=== PATIENT | female | born 1950 | race Caucasian/White ===

== ENCOUNTER 2017-07-22 02:36 | Inpatient (IN) | payer MEDICARE, MEDICAID ==
[2017-07-22] MEDS ORDERED: ONDANSETRON HCL INJ/PF 4 MG/2 ML SDV IV ONE (02:46)
[2017-07-22] MEDS ORDERED: HYDROMORPHONE HCL INJ/PF 2 MG/ML AMPULE IV ONE (02:47)
--- NOTE | 2017-07-22 02:51 | ER Document Report ---
ED General <ANJU BEAUCHAMP - Last Filed: 07/22/17 06:42> <THUY AMANDA - Last Filed: 07/22/17 11:36> - General Stated Complaint: ABDOMINAL PAIN Time Seen by Provider: 07/22/17 02:46 - HPI Notes: Patient is a 67-year-old female no significant past medical history aside from a hysterectomy who presents to the ED complaining of generalized abdominal pain , but worse in the epigastrium. Patient states that her symptoms began at 1800 yesterday evening after she ate dinner. Patient states that she was feeling nauseated and forced herself to throw up 3 times without any coffee-ground emesis or hematemesis. Patient states that she continues to have abdominal pain as well as nausea. She states that she is urinating normally and she had a normal bowel movement 2 days ago. Patient states that she usually has a bowel movement every couple days which is normal for her. Patient has not noticed any melena or hematochezia. Patient states that the pain does not radiate. She does not take any medicines daily. Denies any other recent illness. Denies any headache, fever, URI, sore throat, chest pain, palpitations , syncope, cough, shortness of breath, wheeze, dyspnea, diarrhea, urinary retention, dysuria, hematuria, loss of control of bowel or bladder, numbness/ tingling, saddle anesthesia, muscle paralysis/weakness, or rash. (ANJU BEAUCHAMP) - Related Data Allergies/Adverse Reactions: No Known Allergies Allergy (Unverified 07/22/17 02:47) Past Medical History - Social History Smoking Status: Never Smoker Family History: Reviewed & Not Pertinent <ANJU BEAUCHAMP - Last Filed: 07/22/17 06:42> Review of Systems - Review of Systems -: Yes All other systems reviewed and negative <ANJU BEAUCHAMP - Last Filed: 07/22/17 06:42> Physical Exam <ANJU BEAUCHAMP - Last Filed: 07/22/17 06:42> <THUY AMANDA - Last Filed: 07/22/17 11:36> - Vital signs Vitals: Temp Pulse Resp BP Pulse Ox 98.3 F 97 20 122/88 H 95 07/22/17 02:46 07/22/17 02:46 07/22/17 02:46 07/22/17 02:46 07/22/17 02:46 - Notes Notes: PHYSICAL EXAMINATION: GENERAL: Well-appearing, well-nourished and appears uncomfortable. A&Ox4. HEAD: Atraumatic, normocephalic. EYES: Pupils equal round and reactive to light, extraocular movements intact, sclera anicteric, conjunctiva are normal. ENT: Nares patent and without discharge. oropharynx clear without exudates. No tonsilar hypertrophy or erythema. Moist mucous membranes. NECK: Normal range of motion, supple without lymphadenopathy LUNGS: Breath sounds clear to auscultation bilaterally and equal. No wheezes rales or rhonchi. HEART: Regular rate and rhythm without murmurs, rubs, gallops. ABDOMEN: Soft, nondistended abdomen. No guarding, no rebound. No masses appreciated. Normal bowel sounds present. No CVA tenderness bilaterally. + generalized tenderness, but increased tenderness to the epigastrum. ?[place]. Musculoskeletal: FROM to passive/active. Strength 5+/5. Extremities: No cyanosis, clubbing, or edema b/l. Peripheral pulses 2+. Capillary refill less than 3 seconds. NEUROLOGICAL: Normal speech, normal gait. Normal sensory, motor exams PSYCH: Normal mood, normal affect. SKIN: Warm, Dry, normal turgor, no rashes or lesions noted. (ANJU BEAUCHAMP) Course - Laboratory Result Diagrams: 07/22/17 04:05 07/22/17 04:05 <ANJU BEAUCHAMP - Last Filed: 07/22/17 06:42> - Laboratory Result Diagrams: 07/22/17 04:05 07/22/17 04:05 <THUY AMANDA - Last Filed: 07/22/17 11:36> - Re-evaluation Re-evalutation: 07/22/17 05:38 Patient CMP shows elevated bili and LFTs with a normal lipase. Urinalysis shows bilirubin as well. Patient does not have an elevated white blood cell count and is currently afebrile. Right upper quadrant ultrasound was unremarkable for any acute pathology. I did consult with Dr. Adan who will come evaluate the patient, possible choledocolithiasis. Pt states that she is feeling much better than when she arrived. No new concerns or complaints. Last PO intake was 1800 yesterday. 07/22/17 06:34 Dr. Adan evaluated the patient. He would like a CT abd/pelv with IV and Oral with a MRCP thereafter for further evaluation. Consult will be with Dr. Da Silva thereafter since Dr. Adan will be off duty starting at 0700 07/22/17 07:00 Care transferred to [facility] SARABIA (ANJU BEAUCHAMP) 07/22/17 11:35 CT reveals pericholecystic fluid, correlation with elevated liver enzymes and elevated bilirubin suggests cholecystitis even though ultrasound negative for acute gallbladder issue. Surgeon wants to take patient to the OR to remove her gallbladder immediately. MRCP canceled at this time. Admitted to Dr. Da Silva. (THUY AMANDA) - Vital Signs Vital signs: Temp Pulse Resp BP Pulse Ox 98.8 F 110 H 16 105/65 94 07/22/17 09:49 07/22/17 06:46 07/22/17 10:01 07/22/17 10:00 07/22/17 10:01 - Laboratory Laboratory results interpreted by me: 07/22/17 07/22/17 07/22/17 03:43 04:05 04:05 Seg Neutrophils % 91.3 H Lymphocytes % 6.2 L Monocytes % 1.5 L Absolute Lymphocytes 0.3 L Total Bilirubin 2.3 H Direct Bilirubin 1.8 H AST 287 H ALT 193 H Alkaline Phosphatase 167 H Urine Protein 30 H Urine Blood SMALL H Urine Bilirubin MODERATE H Urine Urobilinogen 4.0 H Ur Leukocyte Esterase TRACE H Discharge <ANJU BEAUCHAMP - Last Filed: 07/22/17 06:42> - Discharge Admitting Provider: Surgicalist - [facility] Unit Admitted: OR <THUY AMANDA - Last Filed: 07/22/17 11:36> - Discharge Clinical Impression: RUQ pain, Elevated liver enzymes, Elevated bilirubin Condition: Stable Disposition: ADMITTED INPATIENT
[2017-07-22] MEDS: NORMAL SALINE 1000 ML 1,000 ML IV PRN ×2 (03:03→05:44)
--- NOTE | 2017-07-22 03:50 | RADIOLOGY REPORT (SQ) ---
EXAM DESCRIPTION: CHEST 2 VIEWS CLINICAL HISTORY: epigastric pain COMPARISON: None. FINDINGS: 2 views of the chest. Tortuosity of thoracic aorta. Heart is not enlarged. Elevation the right hemidiaphragm. No consolidation, pneumothorax, or pleural effusion. Degenerative change of the spine. Upper abdominal soft tissues are unremarkable. IMPRESSION: 1. No acute pulmonary process identified.
[2017-07-22 04:00] LABS: APPEARANCE,URINE CLOUDY; BILIRUBIN,URINE MODERATE (NEGATIVE); COLOR,URINE YELLOW; GLUCOSE, URINE NEGATIVE (NEGATIVE); KETONES,URINE NEGATIVE (NEGATIVE); LEUKOCYTE ESTERASE,URINE TRACE (NEGATIVE); NITRITE,URINE NEGATIVE (NEGATIVE); PROTEIN,URINE 30 mg/dL (NEGATIVE); URINE SPECIFIC GRAVITY 1.027
[2017-07-22 04:22] LABS: ABSOLUTE LYMPHOCYTES (AUTO) 0.3 10^3/uL (0.5-4.7); ABSOLUTE MONOCYTES (AUTO) 0.1 10^3/uL (0.1-1.4); ABSOLUTE NEUT (AUTO) 4.2 10^3/uL (1.7-8.2); BASOPHILS % (AUTO) 0.4 % (0-2); EOSINOPHILS % (AUTO) 0.6 % (0-6); HEMATOCRIT 36.9 % (36.0-47.0); HEMOGLOBIN 12.6 g/dL (12.0-15.5); LYMPHOCYTES % (AUTO) 6.2 % (13-45); MEAN CORPUSCULAR HEMOGLOBIN 31.1 pg (27.0-33.4); MEAN CORPUSCULAR HGB CONC 34.3 g/dL (32.0-36.0); MEAN CORPUSCULAR VOLUME 91 fl (80-97); MONOCYTES % (AUTO) 1.5 % (3-13); PLATELET COUNT 189 10^3/uL (150-450); RED BLOOD COUNT 4.06 10^6/uL (3.72-5.28); RED CELL DISTRIBUTION WIDTH 12.3 % (11.5-14.0); SEGMENTED NEUTROPHILS % (AUTO) 91.3 % (42-78); TOTAL CELLS COUNTED % (AUTO) 100 %; WHITE BLOOD COUNT 4.6 10^3/uL (4.0-10.5)
[2017-07-22 04:41] LABS: ALANINE AMINOTRANSFERASE 193 U/L (9-52); ALBUMIN 3.7 g/dL (3.5-5.0); ALKALINE PHOSPHATASE 167 U/L (38-126); ANION GAP 10 (5-19); ASPARTATE AMINO TRANSFERASE 287 U/L (14-36); BILIRUBIN,DIRECT 1.8 mg/dL (0.0-0.4); BILIRUBIN,TOTAL 2.3 mg/dL (0.2-1.3); BLOOD UREA NITROGEN 15 mg/dL (7-20); CALCIUM 8.9 mg/dL (8.4-10.2); CARBON DIOXIDE 27 mmol/L (22-30); CHLORIDE 105 mmol/L (98-107); GLUCOSE 108 mg/dL (75-110); POTASSIUM 3.6 mmol/L (3.6-5.0); SODIUM 142.1 mmol/L (137-145); TOTAL PROTEIN 6.7 g/dL (6.3-8.2)
--- NOTE | 2017-07-22 05:04 | RADIOLOGY REPORT (SQ) ---
EXAM DESCRIPTION: U/S ABDOMEN LIMITED W/O DOP CLINICAL HISTORY: ruq/epigastric pain COMPARISON: None. TECHNIQUE: Real-time sonographic images of the right upper abdomen were obtained using a curved multihertz transducer. FINDINGS: Pancreas: The visualized portions of the pancreas are unremarkable. Vascular: The visualized portions of the aorta and IVC are unremarkable. Liver: The liver has normal contour and increased echogenicity. Hepatopedal flow in the portal vein. The common bile duct measures 0.6 cm. Gallbladder: The gallbladder has a normal appearance. No gallstones identified. No wall thickening or pericholecystic fluid. Right Kidney: The right kidney measures 10.7 cm in length. No hydronephrosis, solid renal mass, or shadowing calculi. IMPRESSION: 1. No gallstones. 2. Hepatic steatosis.
--- NOTE | 2017-07-22 06:54 | PDOC H&P ---
History of Present Illness Admission Date/PCP: 07/22/17 Patient complains of: epigastric pains with nausea History of Present Illness: LESLIE ALFARO is a 67 year old female who c/o epigastric pains at 6 pm yesterday. Denies any fatty food intolerance. Past Medical History Pulmonary Medical History: Reports: Asthma Social History Smoking Status: Former Smoker - Stopped 6 yrs ago but past 2 weeks has been smoking less than half a pack a day Frequency of Alcohol Use: Social - About a glass of wine a day Hx Recreational Drug Use: No Family History Family History: Reviewed & Not Pertinent Parental Family History Reviewed: Yes - father of Pancreatic CA in his 40s Children Family History Reviewed: No Sibling(s) Family History Reviewed.: No Medication/Allergy Allergies/Adverse Reactions: No Known Allergies Allergy (Unverified 07/22/17 02:47) Review of Systems Constitutional: PRESENT: other - no fever/chills Ears: PRESENT: other - no visual/hearing changes Respiratory: PRESENT: other - no chest pains/cough Gastrointestinal: PRESENT: abdominal pain, nausea Genitourinary: PRESENT: other - no dysuria Neurological: PRESENT: other - no tremors Endocrine: PRESENT: other - no polyuria Hematologic/Lymphatic: PRESENT: other - no easy bruising Physical Exam Vital Signs: Temp Pulse Resp BP Pulse Ox 98.3 F 97 20 122/88 H 95 07/22/17 02:46 07/22/17 02:46 07/22/17 02:46 07/22/17 02:46 07/22/17 02:46 General appearance: PRESENT: mild distress Head exam: PRESENT: atraumatic Eye exam: PRESENT: scleral icterus - slight Mouth exam: PRESENT: moist Neck exam: PRESENT: full ROM Respiratory exam: PRESENT: clear to auscultation emiliana Cardiovascular exam: PRESENT: RRR Pulses: PRESENT: normal radial pulses Vascular exam: PRESENT: normal capillary refill GI/Abdominal exam: PRESENT: soft, tenderness - epigastric/RUQ RLQ Rectal exam: PRESENT: deferred Extremities exam: PRESENT: full ROM Musculoskeletal exam: PRESENT: ambulatory Neurological exam: PRESENT: alert, oriented to person, oriented to place, oriented to time, oriented to situation Psychiatric exam: PRESENT: appropriate affect Skin exam: PRESENT: normal color, warm Results Laboratory Results: 07/22/17 04:05 07/22/17 04:05 07/22/17 07/22/17 07/22/17 03:43 04:05 04:05 WBC 4.6 RBC 4.06 Hgb 12.6 Hct 36.9 MCV 91 MCH 31.1 MCHC 34.3 RDW 12.3 Plt Count 189 Seg Neutrophils % 91.3 H Lymphocytes % 6.2 L Monocytes % 1.5 L Eosinophils % 0.6 Basophils % 0.4 Absolute Neutrophils 4.2 Absolute Lymphocytes 0.3 L Absolute Monocytes 0.1 Absolute Eosinophils 0.0 Absolute Basophils 0.0 Sodium 142.1 Potassium 3.6 Chloride 105 Carbon Dioxide 27 Anion Gap 10 BUN 15 Creatinine 0.70 Est GFR ( Amer) > 60 Est GFR (Non-Af Amer) > 60 Glucose 108 Calcium 8.9 Total Bilirubin 2.3 H AST 287 H ALT 193 H Alkaline Phosphatase 167 H Total Protein 6.7 Albumin 3.7 Lipase 62.0 Urine Color YELLOW Urine Appearance CLOUDY Urine pH 5.0 Ur Specific [place] 1.027 Urine Protein 30 H Urine Glucose (UA) NEGATIVE Urine Ketones NEGATIVE Urine Blood SMALL H Urine Nitrite NEGATIVE Ur Leukocyte Esterase TRACE H Urine WBC (Auto) 10 Urine RBC (Auto) 26 Impressions: Chest X-Ray 07/22/17 02:46 IMPRESSION: 1. No acute pulmonary process identified. Abdomen Ultrasound 07/22/17 04:25 IMPRESSION: 1. No gallstones. 2. Hepatic steatosis. Assessment & Plan - Diagnosis (1) Elevated LFTs Is this a current diagnosis for this admission?: Yes - Time Time Spent: 30 to 50 Minutes - Inpatient Certification Based on my medical assessment, after consideration of the patient's comorbidities, presenting symptoms, or acuity I expect that the services needed warrant INPATIENT care.: Yes I certify that my determination is in accordance with my understanding of Medicare's requirements for reasonable and necessary INPATIENT services [42 CFR 412.3e].: Yes Medical Necessity: Need For IV Fluids, Need for Pain Control, Need for IV Antibiotics, Need for Surgery, Risk of Complication if Not Cared For in Hospital , Risk of Diagnosis Which Will Require Inpatient Eval/Care/Monitoring - Plan Summary Plan Summary: Patient had morphine IV about 4 hrs ago. Need to be re-evaluated when pain med wears out. Meantime CT scan abd/pelvis ordered for abdominal pains R/O Acute appendicitis. May need MRCP to R/O CBD stone Keep NPO and hydrate.
[2017-07-22] MEDS ORDERED: SUCCINYLCHOLINE CHLORIDE INJ 200 MG/10 ML VIAL ONE (07:51)
[2017-07-22] MEDS ORDERED: METOCLOPRAMIDE HCL INJ/PF 10 MG/2 ML SDV ONE (07:51)
[2017-07-22] MEDS ORDERED: NEOSTIGMINE METHYLSULFATE 10 MG/10 ML VIAL ONE (07:51)
[2017-07-22] MEDS ORDERED: LIDOCAINE 2% INJ-PF (20 MG/ML) 2 ML AMPUL ONE (07:51)
[2017-07-22] MEDS ORDERED: GLYCOPYRROLATE INJ 0.4 MG/2 ML VIAL ONE (07:51)
[2017-07-22] MEDS ORDERED: DEXAMETHASONE SOD PHOSPHATE INJ 4 MG/1 ML VIAL ONE (07:51)
[2017-07-22] MEDS ORDERED: KETOROLAC TROMETHAMINE 60 MG/2 ML SDV ONE (07:51)
[2017-07-22] MEDS ORDERED: ROCURONIUM BROMIDE INJ 50 MG/5 ML VIAL IV ONE (07:51)
[2017-07-22] MEDS ORDERED: ONDANSETRON HCL INJ/PF 4 MG/2 ML SDV ONE (07:51)
--- NOTE | 2017-07-22 09:51 | RADIOLOGY REPORT (SQ) ---
EXAM DESCRIPTION: CT ABD/PELVIS WITH IV ORAL COMPLETED DATE/TIME: 07/22/2017 9:26 am REASON FOR STUDY: RLQ, Epigastric pain COMPARISON: None. TECHNIQUE: CT scan of the abdomen and pelvis performed with intravenous and oral contrast using avis [place] scanning technique with dynamic intravenous contrast injection. Images reviewed with lung, soft t issue, and bone windows. Reconstructed coronal and sagittal MPR images reviewed. Delayed images for e valuation of the urinary system also acquired. All images stored on PACS. All CT scanners at this facility use dose modulation, iterative reconstruction, and/or weight based d osing when appropriate to reduce radiation dose to as low as reasonably achievable (ALARA). [facility]: Dose Right [facility]: CareDose [facility]: Dose Right [facility]: Teradose 4D [facility]: [employer] CONTRAST TYPE AND DOSE: contrast/concentration: Isovue 370.00 mg/ml; Total Contrast Delivered: 89.0 ml; Total Saline Delivered: 63.0 ml RENAL FUNCTION: GFR > 60. RADIATION DOSE: CT Rad equipment meets quality standard of care and radiation dose reduction techniq ues were employed. CTDIvol: 18.0 - 20.4 mGy. DLP: 2111 mGy-cm. . LIMITATIONS: None. FINDINGS: LOWER CHEST: No significant findings. No nodules or infiltrates. LIVER: Diffuse hepatic steatosis. No masses. No dilated ducts. SPLEEN: Normal size. No focal lesions. PANCREAS: No masses. No significant calcifications. No adjacent inflammation or peripancreatic fluid collections. Pancreatic duct not dilated. GALLBLADDER: No identified stones by CT criteria. Trace pericholecystic fluid. ADRENAL GLANDS: No significant masses or asymmetry. RIGHT KIDNEY AND URETER: No solid masses. No significant calcifications. No hydronephrosis or hyd roureter. LEFT KIDNEY AND URETER: 3.8 cm simple cyst. 7 mm low attenuating lesion too small to adequately anjali acterize anterior upper pole left kidney but statistically represents a benign cyst. No definite shawn id masses. No significant calcifications. No hydronephrosis or hydroureter. AORTA AND VESSELS: Atherosclerotic calcifications. No aneurysm. No dissection. Renal arteries, SMA, celiac without stenosis. RETROPERITONEUM: No retroperitoneal adenopathy, hemorrhage or masses. BOWEL AND PERITONEAL CAVITY: No obstruction. No visualized masses. No free fluid. No inflammatory ch anges or thickening of bowel wall. 2.9 cm duodenal diverticulum series 3, image 34 and series 601, i mage 44 APPENDIX: Normal. PELVIS: No significant masses. Normal bladder. No free fluid. ABDOMINAL WALL: No masses. No hernias. BONES: Degenerative change without fracture or suspicious osseous lesion. OTHER: No other significant finding. IMPRESSION: TRACE PERICHOLECYSTIC FLUID IDENTIFIED. CORRELATE WITH RIGHT UPPER QUADRANT PAIN AND IF THERE IS CLINICAL CONCERN FOR ACUTE CHOLECYSTITIS RECOMMEND ULTRASOUND. NO ADDITIONAL ACUTE INFLAMMATORY CHANGE IDENTIFIED WITHIN THE ABDOMEN OR PELVIS. CHRONIC CHANGES ABOVE. TECHNICAL DOCUMENTATION: JOB ID: [id number] Quality ID # [id number]: Final reports with documentation of one or more dose reduction techniques (e.g., Au tomated exposure control, adjustment of the mA and/or kV according to patient size, use of iterative reconstruction technique) 2010 [employer]- All Rights Reserved Reading location - IP/workstation name: [email or web address]
[2017-07-22] MEDS ORDERED: KETOROLAC TROMETHAMINE INJ/PF 30 MG/1 ML SDV IV PRN (10:06)
[2017-07-22] MEDS ORDERED: CEFAZOLIN 1 GM/D5W RTU 1 GM/50 ML RTUPB IV ONE (11:30)
[2017-07-22] MEDS ORDERED: MIDAZOLAM 2 MG/2 ML INJ ONE (12:00)
[2017-07-22] MEDS ORDERED: FENTANYL CITRATE INJ/PF 250 MCG/5 ML AMPULE ONE (12:00)
[2017-07-22] MEDS ORDERED: DEXMEDETOMIDINE INJ 80 MCG/20 ML VIAL IV ONE (12:01)
[2017-07-22] MEDS ORDERED: EPHEDRINE SULFATE INJ 50 MG/1 ML AMPULE ONE (12:01)
[2017-07-22] MEDS ORDERED: PROPOFOL INJ 200 MG/20 ML VIAL IV ONE (12:01)
[2017-07-22] MEDS ORDERED: ACETAMINOPHEN 100 ML IV ONE (12:01)
[2017-07-22] MEDS: RINGERS SOLUTION,LACTATED 1,000 ML IV PRN ×2 (12:07→22:36)
[2017-07-22] MEDS ORDERED: BUPIVACAINE HCL 0.25 % INJ/PF (2.5 MG/1 ML) 30 ML VIAL ONE (12:29)
[2017-07-22] MEDS ORDERED: ONDANSETRON HCL INJ/PF 4 MG/2 ML SDV IV PRN ×2 (13:08→14:47)
[2017-07-22] MEDS ORDERED: PROMETHAZINE HCL INJ 25 MG/1 ML VIAL IV PRN ×2 (13:08)
[2017-07-22] MEDS ORDERED: MEPERIDINE HCL/PF INJ 25 MG/1 ML DISP.SYRIN IV PRN (13:08)
[2017-07-22] MEDS ORDERED: DIPHENHYDRAMINE HCL 50 MG/ML VIAL IV PRN (13:08)
[2017-07-22] MEDS ORDERED: FENTANYL CITRATE INJ/PF 100 MCG/2 ML AMPUL IV PRN ×3 (13:08)
--- NOTE | 2017-07-22 14:23 | Operative Report ---
Operative Report DATE OF SURGERY: 07/22/17 PREOPERATIVE DIAGNOSIS: Acute cholecystitis POSTOPERATIVE DIAGNOSIS: Same with cholelithiasis. Thickened appendix OPERATION: 1. Laparoscopic cholecystectomy. 2. Laparoscopic appendectomy SURGEON: IRENE BACON ANESTHESIA: GA TISSUE REMOVED OR ALTERED: 1 gallbladder with contents; one appendix COMPLICATIONS: None ESTIMATED BLOOD LOSS: Scant INTRAOPERATIVE FINDINGS: See below PROCEDURE: After obtaining informed consent, the patient was taken to the operating room. General Anesthesia was induced; the arms were extended, and the abdomen was exposed, and prepped and draped in a sterile fashion. Instrumentation was set up for laparoscopic cholecystectomy. Surgical plan and surgical timeout were conducted. A vertical incision was made above the umbilicus, and a verres needle was inserted uneventfully into the peritoneal cavity. Pneumoperitoneum was established. The verres needle was removed and a 5 mm trocar was inserted and a 5 mm flexible laparoscope was inserted. Visualization of the peritoneal cavity confirmed safe uneventful entry. Under direct visualization 3 additional 5 mm ports were established, one in the subxiphoid position and second in the subcostal position. We visualized the peritoneal cavity and the findings are significant for acutely inflamed gallbladder consistent with acute cholecystitis. Gallbladder was aspirated of approximately 60 cc of bile. There was some particulate matter in the bile consistent with sludge. Graspers were placed on the fundus and infundibulum and adhesions between the gallbladder and the duodenum were taken down very carefully. The dominant cystic artery was to the right of the cystic duct. We got around the cystic artery just at the transition from the neck of the gallbladder to the cystic duct with a dissector. We now clipped the cystic artery 2 times proximally one time distally and divided with scissors. We continued to dissect around the cystic duct however the angle of Calot low would not open up easily. It was primarily due to edema and thickened adhesions. Therefore we decided to take the gallbladder off of the liver bed using a top down approach. Graspers were repositioned, and using hook cautery dissection, the bladder was removed from the inferior surface of the liver in uneventful fashion. A small posterior branch of the cystic artery was cauterized on the gallbladder side, clipped on the liver side and divided. We now have the gallbladder suspended solely from its neck. The neck did not taper into the cystic duct readily, so I therefore felt it was appropriate to amputate the gallbladder at this point. Photos were taken. The cystic duct was clipped on the gallbladder side and a cystotomy made with scissors. There was a moderate amount of sludge coming out of the cystic duct stump. We selected the cystic duct in its entirety leaving it open to drain. The gallbladder was removed uneventfully to the supraumbilical port site without spillage of contents. We returned to them and the cystic duct stump. The bile that had now drained was clear. We secured the cystic duct stump with a single application of an Endoloop. Fixation was felt to be satisfactory. Photos were taken. Because the patient also had some right lower quadrant tenderness likely radiation from the acutely inflamed gallbladder I elected to look at the appendix so the patient was placed in Trendelenburg and airplane to the left side, right side up. The appendix was not erythematous but it was edematous from its long-term to the distal point. It appeared more thickened than frankly edematous. Photo was taken. I elected to proceed with interval appendectomy. Again this was an incidental finding, and not felt to be responsible for the patient's symptoms. My concern was this could be a mucocele or an occult carcinoid tumor or simply a thickened appendix. We switched out the supraumbilical 5 mm port with a 12 mm port, brought onto the field a 45 mm blue load Endo stapler and proceeded to amputate the appendix at its base including the mesoappendix with a single firing the stapler. The appendix was brought up through the 12 mm port and sent to pathology as same. We checked the staple line it was in good shape. There is no mechanical bleeding. We also checked position of our clips and Endoloop at the subcostal operative site. No bleeding there. There is no bile leaking. At this point we felt the operation was complete. The subcutaneous tissue was then anesthetized with quarter percent Marcaine Sponge and needle counts are correct. All ports removed under direct visualization pneumoperitoneum evacuated, and 5 mm port wounds closed with 3-0 with 0 Vicryl used to close the supraumbilical port at the fascial level. Skin incisions closed with benzoin and Steri-Strips The patient was extubated, and taken to the recovery room in stable condition.
[2017-07-22] MEDS ORDERED: KETOROLAC TROMETHAMINE 10 MG TABLET PO PRN (14:47)
--- NOTE | 2017-07-22 17:20 | EKG REPORT ---
SEVERITY:- OTHERWISE NORMAL ECG - SINUS TACHYCARDIA : Confirmed by: Bin Mcqueen 22-Jul-2017 17:18:57
[2017-07-22] MEDS: CEFAZOLIN 1 GM/D5W RTU 1 GM/50 ML RTUPB IV SCH (19:48)
[2017-07-22] MEDS: KETOROLAC TROMETHAMINE INJ/PF 30 MG/1 ML SDV IV PRN (19:49)
[2017-07-22] MEDS: ACETAMINOPHEN 325 MG TABLET PO PRN (23:19)
[2017-07-23] MEDS: CEFAZOLIN 1 GM/D5W RTU 1 GM/50 ML RTUPB IV SCH ×2 (03:04→10:18)
[2017-07-23] MEDS: KETOROLAC TROMETHAMINE INJ/PF 30 MG/1 ML SDV IV PRN (03:57)
[2017-07-23] MEDS: RINGERS SOLUTION,LACTATED 1,000 ML IV PRN (07:22)
--- NOTE | 2017-07-23 07:53 | Physician Advisory Note ---
Physician Advisor ProgressNote .: [facility], I have reviewed the medical record for this patient. Physician Advisor Statement: Please consider documenting, if you agree: 1. "Acute cholecystitis w/cholelithiasis" (as Dx #1, if this was the Principal Dx/main reason for hospitalization) 2. "Hypoxemia as low as 87% on RA, & 93-95% on 2L O2, recurrent", "recurrent tachycardia & tachypnea", "I AM CONCERNED ABOUT ", ... 3. - if concern about #2, or other clinical issue, leads to need for continued monitoring/tx for a 2nd MN in hospital, then please state that & may change to Inpatient status. 3. "Elevated LFTs, suspect due to " (lab findings need to be linked to likely underlying dx) Thanks! CK
--- NOTE | 2017-07-23 09:55 | PDOC PROGRESS REPORT ---
Subjective Progress Note for:: 07/23/17 Subjective:: Feels well. Preoperative abdominal pain has markedly improved. Tolerating a diet. Reason For Visit: ACUTE ABDOMINAL PAIN Physical Exam Vital Signs: Temp Pulse Resp BP Pulse Ox 98.3 F 88 18 123/63 93 07/23/17 07:07 07/23/17 08:32 07/23/17 08:32 07/23/17 07:07 07/23/17 08:32 Intake & Output 07/22/17 07/23/17 07/24/17 06:59 06:59 06:59 Intake Total 2950 Output Total 570 Balance 2380 Weight 99 kg General appearance: PRESENT: no acute distress, cooperative Eye exam: PRESENT: conjunctiva pink Respiratory exam: PRESENT: clear to auscultation emiliana Cardiovascular exam: PRESENT: RRR GI/Abdominal exam: PRESENT: other - Soft, nondistended, minimal tenderness. Extremities exam: PRESENT: other - No swelling and no tenderness Results Impressions: Abdomen/Pelvis CT 07/22/17 00:00 IMPRESSION: TRACE PERICHOLECYSTIC FLUID IDENTIFIED. CORRELATE WITH RIGHT UPPER QUADRANT PAIN AND IF THERE IS CLINICAL CONCERN FOR ACUTE CHOLECYSTITIS RECOMMEND ULTRASOUND. NO ADDITIONAL ACUTE INFLAMMATORY CHANGE IDENTIFIED WITHIN THE ABDOMEN OR PELVIS. CHRONIC CHANGES ABOVE. Chest X-Ray 07/22/17 02:46 IMPRESSION: 1. No acute pulmonary process identified. Abdomen Ultrasound 07/22/17 04:25 IMPRESSION: 1. No gallstones. 2. Hepatic steatosis. Assessment & Plan - Diagnosis (1) Cholecystitis Is this a current diagnosis for this admission?: Yes Plan: Status post laparoscopic cholecystectomy along with laparoscopic appendectomy for abnormal appearing appendix. Patient doing very well. Will check LFTs, if they are improved we will plan to discharge patient home today.
[2017-07-23 11:08] LABS: ALANINE AMINOTRANSFERASE 288 U/L (9-52); ALKALINE PHOSPHATASE 124 U/L (38-126); ANION GAP 8 (5-19); ASPARTATE AMINO TRANSFERASE 201 U/L (14-36); BILIRUBIN,DIRECT 1.9 mg/dL (0.0-0.4); BILIRUBIN,TOTAL 2.3 mg/dL (0.2-1.3); BLOOD UREA NITROGEN 19 mg/dL (7-20); CALCIUM 8.4 mg/dL (8.4-10.2); CARBON DIOXIDE 28 mmol/L (22-30); CHLORIDE 102 mmol/L (98-107); GLUCOSE 106 mg/dL (75-110); POTASSIUM 3.7 mmol/L (3.6-5.0); SODIUM 138.2 mmol/L (137-145); TOTAL PROTEIN 5.6 g/dL (6.3-8.2)
--- NOTE | 2017-07-23 12:43 | RADIOLOGY REPORT (SQ) ---
EXAM DESCRIPTION: CT CHEST WITH COMPLETED DATE/TIME: 07/23/2017 12:33 pm REASON FOR STUDY: dyspnea R06.00 DYSPNEA, UNSPECIFIED COMPARISON: None. TECHNIQUE: CT scan of the chest performed using helical scanning technique with dynamic intravenous contrast injection. Images reviewed with lung, soft tissue and bone windows. Reconstructed coronal and sagittal MPR images reviewed. All images stored on PACS. All CT scanners at this facility use dose modulation, iterative reconstruction, and/or weight based d osing when appropriate to reduce radiation dose to as low as reasonably achievable (ALARA). [facility]: Dose Right [facility]: CareDose [facility]: Dose Right [facility]: Teradose 4D [facility]: [employer] CONTRAST TYPE AND DOSE: contrast/concentration: Isovue 370.00 mg/ml; Total Contrast Delivered: 80.0 ml; Total Saline Delivered: 36.8 ml RENAL FUNCTION: BUN 19 creatinine 0.7 RADIATION DOSE: CT Rad equipment meets quality standard of care and radiation dose reduction techniq ues were employed. CTDIvol: 16.1 mGy. DLP: 547 mGy-cm. . LIMITATIONS: None. FINDINGS: LUNGS AND PLEURA: Subsegmental airspace disease in both lower lobes, right greater than le ft. Trace pleural effusions. HILAR AND MEDIASTINAL STRUCTURES: No identified masses or abnormal nodes. HEART AND VASCULAR STRUCTURES: No aneurysm or dissection. No central pulmonary emboli. No pericardi al effusion. HARDWARE: None in the chest. UPPER ABDOMEN: No significant findings. Limited exam. THYROID AND OTHER SOFT TISSUES: No masses. No adenopathy. BONES: No significant finding. OTHER: No other significant finding. IMPRESSION: Bilateral lower lobe pneumonia. TECHNICAL DOCUMENTATION: JOB ID: [id number] Quality ID # [id number]: Final reports with documentation of one or more dose reduction techniques (e.g., Au tomated exposure control, adjustment of the mA and/or kV according to patient size, use of iterative reconstruction technique) 2010 [employer]- All Rights Reserved Reading location - IP/workstation name: [email or web address]
[2017-07-23] MEDS: IPRATROPIUM/ALBUTEROL 0.5-2.5 MG/3 ML AMPUL NEB SCH ×2 (13:39→19:51)
[2017-07-23] MEDS ORDERED: FLUTICASONE NASAL SPRAY 50 MCG/SPRY 120 SPRAY/16 GM NASL ONE (14:00)
--- NOTE | 2017-07-23 14:40 | PDOC CONSULTATION ---
Consultation Consult Date: 07/23/17 Attending physician:: TRESSA OWEN Consult reason:: Dyspnea History of Present Illness Admission Date/PCP: 07/22/17 11:39 History of Present Illness: LESLIE ALFARO is a 67 year old female underwent cholecystectomy on July 22 and tolerated procedure well. Today the patient is experiencing shortness of breath and according to her is primarily difficulty to breathe through her nose. She feels very congested and when blowing her nose she gets some blood. Her nurse had reported that patient appeared to be short of breath while trying to ambulate and that once the pulse ox was 88%. However open repeating pulse ox was 95 to 100% at room air. She has been trying to use incentive spirometer regularly. Patient denies any medical illnesses including asthma which had been listed in her record. We were consulted by Dr. Owen for the purpose of evaluating shortness of breath Past Medical History Cardiac Medical History: Reports: None Pulmonary Medical History: Reports: None Denies: Asthma EENT Medical History: Reports: None Neurological Medical History: Reports: None Endocrine Medical History: Reports: None Renal/ Medical History: Reports: None Malignancy Medical History: Reports: None GI Medical History: Reports: None Musculoskeltal Medical History: Reports: None Skin Medical History: Reports: None Psychiatric Medical History: Reports: None Traumatic Medical History: Reports: None Hematology: Reports: None Infectious Medical History: Reports: None Past Surgical History Past Surgical History: Reports: Cholecystectomy Social History Smoking Status: Current Some Day Smoker Frequency of Alcohol Use: Social - About a glass of wine a day Hx Recreational Drug Use: No Drugs: None Hx Prescription Drug Abuse: No - Advance Directive Resuscitation Status: Full Code Family History Family History: Reviewed & Not Pertinent Parental Family History Reviewed: Yes Children Family History Reviewed: Yes Sibling(s) Family History Reviewed.: Yes Medication/Allergy Home Medications: No Home Medications 07/22/17 Allergies/Adverse Reactions: No Known Allergies Allergy (Unverified 07/22/17 02:47) Review of Systems Constitutional: ABSENT: headache(s) Eyes: ABSENT: visual disturbances Ears: ABSENT: hearing changes Nose, Mouth, and Throat: PRESENT: other - Runny, stuffy nose, nosebleeding. Unable to breathe through the nose. ABSENT: mouth pain, sore throat Cardiovascular: ABSENT: chest pain, dyspnea on exertion, edema, orthropnea, palpitations Respiratory: PRESENT: dyspnea Gastrointestinal: PRESENT: abdominal pain. ABSENT: nausea, vomiting Genitourinary: ABSENT: dysuria, hematuria Musculoskeletal: ABSENT: joint swelling Integumentary: ABSENT: pruritus, rash Neurological: ABSENT: abnormal gait, dizziness Endocrine: ABSENT: menstrual abnormalities Physical Exam Vital Signs: Temp Pulse Resp BP Pulse Ox 98.7 F 92 16 130/74 H 95 07/23/17 11:44 07/23/17 11:44 07/23/17 11:44 07/23/17 11:44 07/23/17 11:44 Intake & Output 07/22/17 07/23/17 07/24/17 06:59 06:59 06:59 Intake Total 2950 Output Total 570 Balance 2380 Weight 99 kg General appearance: PRESENT: cooperative, morbidly obese Head exam: PRESENT: atraumatic, normocephalic Eye exam: PRESENT: conjunctiva pink, EOMI, PERRLA Ear exam: PRESENT: normal external ear exam Mouth exam: PRESENT: dry mucosa, neck supple Neck exam: PRESENT: full ROM. ABSENT: JVD, lymphadenopathy, tenderness Respiratory exam: PRESENT: clear to auscultation emiliana Cardiovascular exam: PRESENT: RRR. ABSENT: diastolic murmur, systolic murmur Vascular exam: PRESENT: normal capillary refill GI/Abdominal exam: PRESENT: normal bowel sounds, soft. ABSENT: tenderness Extremities exam: PRESENT: full ROM. ABSENT: joint swelling Musculoskeletal exam: PRESENT: ambulatory Neurological exam: PRESENT: alert, awake, oriented to person, oriented to place , oriented to time, oriented to situation, CN II-XII grossly intact Psychiatric exam: PRESENT: appropriate affect, normal mood Skin exam: PRESENT: normal color Results Laboratory Results: 07/23/17 10:25 07/23/17 10:25 Sodium 138.2 Potassium 3.7 Chloride 102 Carbon Dioxide 28 Anion Gap 8 BUN 19 Creatinine 0.69 Est GFR ( Amer) > 60 Est GFR (Non-Af Amer) > 60 Glucose 106 Calcium 8.4 Total Bilirubin 2.3 H AST 201 H ALT 288 H Alkaline Phosphatase 124 Total Protein 5.6 L Albumin 3.0 L 07/23/17 10:25 NT-Pro-B Natriuret Pep 1940 H Impressions: Abdomen/Pelvis CT 07/22/17 00:00 IMPRESSION: TRACE PERICHOLECYSTIC FLUID IDENTIFIED. CORRELATE WITH RIGHT UPPER QUADRANT PAIN AND IF THERE IS CLINICAL CONCERN FOR ACUTE CHOLECYSTITIS RECOMMEND ULTRASOUND. NO ADDITIONAL ACUTE INFLAMMATORY CHANGE IDENTIFIED WITHIN THE ABDOMEN OR PELVIS. CHRONIC CHANGES ABOVE. Chest X-Ray 07/22/17 02:46 IMPRESSION: 1. No acute pulmonary process identified. Abdomen Ultrasound 07/22/17 04:25 IMPRESSION: 1. No gallstones. 2. Hepatic steatosis. Assessment & Plan - Diagnosis (1) Dyspnea Qualifiers: Dyspnea type: shortness of breath Qualified Code(s): R06.02 - Shortness of breath; R06.00 - Dyspnea, unspecified; R06.01 - Orthopnea Is this a current diagnosis for this admission?: Yes Plan: Ordered BNP which was elevated and CT of the chest with contrast showed bilateral pneumonia. Likely elevated BNP relates to pneumonic process but will order echocardiogram. As far as pneumonic process will place patient on Unasyn which will allow for easy transitioning to Augmentin on discharge. (2) Nasal congestion Is this a current diagnosis for this admission?: Yes Plan: To order Afrin nasal spray, saline nasal spray and Flonase to see if can improve nasal congestion (3) Pneumonia Qualifiers: Pneumonia type: due to unspecified organism Laterality: bilateral Lung location: lower lobe of lung Qualified Code(s): J18.1 - Lobar pneumonia, unspecified organism Is this a current diagnosis for this admission?: Yes Plan: Patient will be placed on Unasyn IV. This is categorized as a community- acquired pneumonia - Time Time Spent: 50 to 70 Minutes Medications reviewed and adjusted accordingly: Yes Anticipated discharge: Other - as per Dr Owen
[2017-07-23] MEDS ORDERED: NALOXONE HCL INJ/PF 0.4 MG/1 ML SDV ONE (17:46)
[2017-07-23] MEDS ORDERED: FENTANYL CITRATE INJ/PF 100 MCG/2 ML AMPUL ONE (17:47)
[2017-07-23] MEDS ORDERED: FLUMAZENIL INJ 0.5 MG/5 ML VIAL ONE (17:47)
[2017-07-23] MEDS ORDERED: EPINEPHRINE INJ 1 MG/10 ML DISP.SYRIN ONE (17:47)
[2017-07-23] MEDS ORDERED: GLUCAGON,HUMAN RECOMB 1 MG INJ ONE (17:47)
[2017-07-23] MEDS: SODIUM CHLORIDE NASAL SPRAY 44 ML NASL SCH ×2 (17:55→23:14)
[2017-07-23] MEDS ORDERED: AMPICILLIN SODIUM/SULBACTAM NA 3 GM in NORMAL SALINE 100 ML IV SCH (18:00)
[2017-07-23] MEDS: MIDAZOLAM 2 MG/2 ML INJ ONE ×2 (18:49→18:54)
--- NOTE | 2017-07-23 19:17 | PDOC CONSULTATION ---
Consultation Consult Date: 07/23/17 History of Present Illness Admission Date/PCP: 07/22/17 11:39 History of Present Illness: LESLIE ALFARO is a 67 year old female patient who was admitted to the emergency room with epigastric pain and nausea. She had the pain for more than 6 hours before presenting to the emergency room and getting painkillers. She did not vomit. She has had similar pain off and on over the years. On admission her LFTs were elevated with a bilirubin of 2.3 AST of 287, ALT 193 and alkaline phosphatase of 167. Her lipase was normal. She has no previous history of liver disease. Initial CAT scan showed some trace pericholecystic fluid and fatty liver. There was no gallstones noted on the CAT scan or the ultrasound. The common bile duct was 6 mm on ultrasound. She had a cholecystectomy and some sludge was noted intraoperatively. Appendix was also thickened and this was also removed. Repeat liver function tests the day after surgery still shows persistent elevation of her bilirubin and transaminases. Past Medical History Cardiac Medical History: Reports: None Pulmonary Medical History: Reports: None Denies: Asthma EENT Medical History: Reports: None Neurological Medical History: Reports: None Denies: Seizures Endocrine Medical History: Reports: None Renal/ Medical History: Reports: None Malignancy Medical History: Reports: None GI Medical History: Reports: None Musculoskeltal Medical History: Reports: None Skin Medical History: Reports: None Psychiatric Medical History: Reports: None Traumatic Medical History: Reports: None Hematology: Reports: None Infectious Medical History: Reports: None Past Surgical History Past Surgical History: Reports: Cholecystectomy Social History Smoking Status: Current Some Day Smoker Frequency of Alcohol Use: Social - About a glass of wine a day Hx Recreational Drug Use: No Drugs: None Hx Prescription Drug Abuse: No - Advance Directive Resuscitation Status: Full Code Family History Family History: Reviewed & Not Pertinent Parental Family History Reviewed: No Children Family History Reviewed: NA Sibling(s) Family History Reviewed.: NA Medication/Allergy Home Medications: No Home Medications 07/22/17 Allergies/Adverse Reactions: No Known Allergies Allergy (Unverified 07/22/17 02:47) Review of Systems All systems: reviewed and no additional remarkable complaints except as stated Physical Exam Vital Signs: Temp Pulse Resp BP Pulse Ox 98 F 139 H 30 H 173/108 H 93 07/23/17 16:00 07/23/17 19:05 07/23/17 19:05 07/23/17 19:05 07/23/17 19:05 Intake & Output 07/22/17 07/23/17 07/24/17 06:59 06:59 06:59 Intake Total 2950 360 Output Total 570 Balance 2380 360 Weight 99 kg Exam: General: Patient is alert obese and has some discomfort from abdominal pain. HEENT: There is no pallor or but she is jaundiced. PERRLA. Oropharynx normal Respiratory: No chest deformity. No respiratory distress. Chest wall palpitation was unremarkable. Breath sounds were normal Cardiovascular: Heart sounds 1 and 2 normal with no murmurs. Abdominal: Not distended. Soft and with some tenderness around her recent abdominal wound. Liver and spleen not palpable. No ascites demonstrated. Bowel sounds active. Rectal examination was deferred. Extremities: No edema Neurological: Alert and oriented x4. Grossly nonfocal. Normal speech Skin: No significant rash Psychological: Normal affect Results Laboratory Results: 07/23/17 10:25 07/23/17 10:25 Sodium 138.2 Potassium 3.7 Chloride 102 Carbon Dioxide 28 Anion Gap 8 BUN 19 Creatinine 0.69 Est GFR ( Amer) > 60 Est GFR (Non-Af Amer) > 60 Glucose 106 Calcium 8.4 Total Bilirubin 2.3 H AST 201 H ALT 288 H Alkaline Phosphatase 124 Total Protein 5.6 L Albumin 3.0 L 07/23/17 10:25 NT-Pro-B Natriuret Pep 1940 H Impressions: Abdomen/Pelvis CT 07/22/17 00:00 IMPRESSION: TRACE PERICHOLECYSTIC FLUID IDENTIFIED. CORRELATE WITH RIGHT UPPER QUADRANT PAIN AND IF THERE IS CLINICAL CONCERN FOR ACUTE CHOLECYSTITIS RECOMMEND ULTRASOUND. NO ADDITIONAL ACUTE INFLAMMATORY CHANGE IDENTIFIED WITHIN THE ABDOMEN OR PELVIS. CHRONIC CHANGES ABOVE. Chest X-Ray 07/22/17 02:46 IMPRESSION: 1. No acute pulmonary process identified. Abdomen Ultrasound 07/22/17 04:25 IMPRESSION: 1. No gallstones. 2. Hepatic steatosis. Chest CT 07/23/17 00:00 IMPRESSION: Bilateral lower lobe pneumonia. Assessment & Plan - Diagnosis (1) Elevated LFTs Is this a current diagnosis for this admission?: Yes Plan: She has persistent elevation of her LFTs including her bilirubin. Her symptoms also suggests biliary disease and there was sludge noted during her cholecystectomy. The need for an ERCP was explained to the patient and she is in agreement. (2) Fatty liver Is this a current diagnosis for this admission?: Yes Plan: She has fatty liver which could potentially explain some of her elevated LFTs but unlikely to explain her elevated bilirubin. (3) Abnormal CAT scan Is this a current diagnosis for this admission?: Yes (4) Cholecystitis Is this a current diagnosis for this admission?: Yes
--- NOTE | 2017-07-23 19:20 | Operative Report ---
Operative Report DATE OF SURGERY: 07/23/17 Operative Report: Pre-op diagnosis: Abdominal pain and jaundice Post-op diagnosis: 1. Common bile duct sludge 2. Intraduodenal insertion of cystic duct 3. Periampullary diverticulum Surgery: ERCP with sphincterotomy, balloon sludge extraction, and epinephrine injection Medications: Versed 3mg Fentanyl 100mcg IV push Tissue removed: None Procedure: After informed consent obtained from patient, the throat was sprayed with Hurricane and conscious sedation was achieved. The ERCP endoscope was then inserted into the esophagus blindly and advanced into the stomach. The duodenum was entered and the ampulla was identified along the edge of the diverticulum. Using the triple-lumen sphincterotomy catheter the common bile duct was freely cannulated. A cholangiogram was obtained which showed possible filling defect in the distal common bile duct. The common bile duct and intrahepatic ducts did not appear dilated. A moderate sized sphincterotomy was then performed along the edge of the diverticulum using the endocut mode. The catheter was removed over the guidewire before a 9-12 mm balloon catheter was inserted. The balloon was inflated to 12 mm in the proximal common bile duct and pulled down the duct. Some sludge was extracted. The duct was swept one more time. A balloon occlusion cholangiogram was normal. The pancreatic duct was intentionally not cannulated. Patient tolerated procedure well. Findings Duodenum: Periampullary diverticulum Common bile duct: Small amount of sludge. There was some bleeding after sphincterotomy and this was controlled by injecting epinephrine 1 in 10,000 Intrahepatic ducts: Normal Pancreatic duct: Not cannulated Plan: Follow-up liver function tests OPERATION: . INTRAOPERATIVE FINDINGS: See below
[2017-07-23] MEDS: AMPICILLIN SODIUM/SULBACTAM NA 3 GM in NORMAL SALINE 100 ML IV SCH (21:26)
[2017-07-23] MEDS: ACETAMINOPHEN 325 MG TABLET PO PRN (23:13)
[2017-07-24] MEDS: OXYMETAZOLINE HCL 0.05% NASAL SPRAY 15 ML BOTTLE NASL SCH ×3 (00:23→18:27)
[2017-07-24] MEDS: KETOROLAC TROMETHAMINE INJ/PF 30 MG/1 ML SDV IV PRN (01:14)
[2017-07-24] MEDS: AMPICILLIN SODIUM/SULBACTAM NA 3 GM in NORMAL SALINE 100 ML IV SCH (03:03)
[2017-07-24] MEDS: RINGERS SOLUTION,LACTATED 1,000 ML IV PRN (03:03)
[2017-07-24 07:07] LABS: HEMATOCRIT 31.2 % (36.0-47.0); HEMOGLOBIN 10.7 g/dL (12.0-15.5); MEAN CORPUSCULAR HEMOGLOBIN 31.5 pg (27.0-33.4); MEAN CORPUSCULAR HGB CONC 34.4 g/dL (32.0-36.0); MEAN CORPUSCULAR VOLUME 92 fl (80-97); PLATELET COUNT 137 10^3/uL (150-450); RED CELL DISTRIBUTION WIDTH 12.6 % (11.5-14.0); WHITE BLOOD COUNT 8.7 10^3/uL (4.0-10.5)
[2017-07-24] MEDS: IPRATROPIUM/ALBUTEROL 0.5-2.5 MG/3 ML AMPUL NEB SCH ×3 (07:25→20:44)
[2017-07-24] MEDS ORDERED: FUROSEMIDE INJ/PF 40 MG/4 ML SDV ONE (07:49)
[2017-07-24] MEDS ORDERED: FUROSEMIDE INJ/PF 20 MG/2 ML SDV ONE (07:50)
[2017-07-24] MEDS ORDERED: FUROSEMIDE INJ/PF 40 MG/4 ML SDV IV ONE ×2 (08:00→08:20)
--- NOTE | 2017-07-24 08:15 | RADIOLOGY REPORT (SQ) ---
EXAM DESCRIPTION: CHEST SINGLE VIEW COMPLETED DATE/TIME: 07/24/2017 8:00 am REASON FOR STUDY: sob COMPARISON: Chest film 07/22/2017 CT chest 06/19/2017 EXAM PARAMETERS: NUMBER OF VIEWS: One view. TECHNIQUE: Single frontal radiographic view of the chest acquired. RADIATION DOSE: NA LIMITATIONS: None. FINDINGS: LUNGS AND PLEURA: Interval increase in pulmonary vascular congestion and interstitial pulm onary edema from fluid overload or congestive failure. Stable consolidation at both lung bases right greater than left Trace fluid in the right major and minor fissure. MEDIASTINUM AND HILAR STRUCTURES: No masses. Contour normal. HEART AND VASCULAR STRUCTURES: Borderline cardiomegaly BONES: No acute findings. HARDWARE: None in the chest. OTHER: No other significant finding. IMPRESSION: Increasing in pulmonary vascular congestion, interstitial edema and fluid in the fissure s from fluid overload or congestive failure TECHNICAL DOCUMENTATION: JOB ID: [id number] [employer]- All Rights Reserved Reading location - IP/workstation name: [email or web address]
[2017-07-24] MEDS: SODIUM CHLORIDE NASAL SPRAY 44 ML NASL SCH ×3 (09:05→16:04)
[2017-07-24] MEDS: PIPERACILLIN SODIUM/TAZOBACTAM 3.375 GM in NORMAL SALINE 100 ML IV SCH ×3 (09:20→21:23)
--- NOTE | 2017-07-24 09:22 | PDOC PROGRESS REPORT ---
Subjective Progress Note for:: 07/24/17 Subjective:: I was notified by the nursing staff that the patient had developed severe respiratory distress and was requiring increasing oxygen this morning. A stat chest x-ray revealed significant vascular congestion. She was diuresed with IV Lasix and is already put out a liter of fluid. She had been receiving IV fluids at 150 cc an hour which have since been stopped. By the time I got up to see the patient she is feeling much better. She still is requiring oxygen but her shortness of breath is greatly improved. She denies fever or shaking chills. She does have a bit of a cough. She continues to be short of breath but much improved over the past hour. She has had no nausea or vomiting. So far she is tolerating her diet. She has a little bit of discomfort from her recent surgery but states that it is under control. She has not had a bowel movement this morning. She is voiding frequently due to the IV diuresis. Reason For Visit: ACUTE ABDOMINAL PAIN Physical Exam Vital Signs: Temp Pulse Resp BP Pulse Ox 98.0 F 92 22 H 151/81 H 94 07/24/17 04:51 07/24/17 07:25 07/24/17 07:25 07/24/17 07:21 07/24/17 07:25 Intake & Output 07/23/17 07/24/17 07/25/17 06:59 06:59 06:59 Intake Total 2950 3010 Output Total 570 Balance 2380 3010 Weight 99 kg 104.3 kg General appearance: PRESENT: obese, well-developed, well-nourished, other - She is receiving oxygen via nasal cannula. ABSENT: no acute distress Head exam: PRESENT: atraumatic, normocephalic Mouth exam: PRESENT: moist Respiratory exam: PRESENT: crackles - She has some very fine crackles in the lower bases bilaterally. She is somewhat diminished but otherwise her lungs sound fairly clear Cardiovascular exam: PRESENT: RRR. ABSENT: diastolic murmur, rubs, systolic murmur GI/Abdominal exam: PRESENT: normal bowel sounds, soft, tenderness - From her recent surgery. Her abdomen was not deeply palpated, other - Surgical incisions seem to be healing properly. No drainage or erythema or other evidence of infection. ABSENT: distended, guarding, mass, organolmegaly, rebound Rectal exam: PRESENT: deferred Extremities exam: PRESENT: full ROM. ABSENT: calf tenderness, clubbing, pedal edema Musculoskeletal exam: PRESENT: ambulatory Neurological exam: PRESENT: alert, awake, oriented to person, oriented to place , oriented to time, oriented to situation, CN II-XII grossly intact. ABSENT: motor sensory deficit Skin exam: PRESENT: dry, intact, warm. ABSENT: cyanosis, rash Results Laboratory Results: 07/24/17 06:37 07/23/17 10:25 07/23/17 07/24/17 10:25 06:37 WBC 8.7 RBC 3.40 L Hgb 10.7 L Hct 31.2 L MCV 92 MCH 31.5 MCHC 34.4 RDW 12.6 Plt Count 137 L Sodium 138.2 Potassium 3.7 Chloride 102 Carbon Dioxide 28 Anion Gap 8 BUN 19 Creatinine 0.69 Est GFR ( Amer) > 60 Est GFR (Non-Af Amer) > 60 Glucose 106 Calcium 8.4 Total Bilirubin 2.3 H AST 201 H ALT 288 H Alkaline Phosphatase 124 Total Protein 5.6 L Albumin 3.0 L 07/23/17 10:25 NT-Pro-B Natriuret Pep 1940 H Impressions: Abdomen/Pelvis CT 07/22/17 00:00 IMPRESSION: TRACE PERICHOLECYSTIC FLUID IDENTIFIED. CORRELATE WITH RIGHT UPPER QUADRANT PAIN AND IF THERE IS CLINICAL CONCERN FOR ACUTE CHOLECYSTITIS RECOMMEND ULTRASOUND. NO ADDITIONAL ACUTE INFLAMMATORY CHANGE IDENTIFIED WITHIN THE ABDOMEN OR PELVIS. CHRONIC CHANGES ABOVE. Abdomen Ultrasound 07/22/17 04:25 IMPRESSION: 1. No gallstones. 2. Hepatic steatosis. Chest CT 07/23/17 00:00 IMPRESSION: Bilateral lower lobe pneumonia. Chest X-Ray 07/24/17 00:00 IMPRESSION: Increasing in pulmonary vascular congestion, interstitial edema and fluid in the fissures from fluid overload or congestive failure Assessment & Plan - Diagnosis (1) Acute respiratory failure with hypoxia Is this a current diagnosis for this admission?: Yes Plan: Multifactorial secondary to congestive heart failure exacerbation as well as underlying pneumonia. She will be diuresed with IV Lasix. We will continue oxygen support as needed. (2) Pneumonia Is this a current diagnosis for this admission?: Yes Plan: CT scan revealed evidence of bilateral lower lobe infiltrates. She had been started on IV Unasyn. I am going to transition her to IV Zosyn today which will provide further gram-negative coverage. She was recently intubated and I suspect this is a gram-negative pneumonia. (3) Acute exacerbation of congestive heart failure Is this a current diagnosis for this admission?: Yes Plan: At this point she has no history of congestive heart failure. I suspect this is a diastolic congestive heart failure event. I have ordered a 2D echocardiogram for further evaluation. We will continue Lasix 40 mg IV every 12 hours today and recheck a chemistry panel as well as a BNP in the morning. (4) Obesity (BMI 35.0-39.9 without comorbidity) Is this a current diagnosis for this admission?: Yes Plan: The patient has a BMI of 39.5. Certainly she would benefit from weight loss and this is not helping her respiratory issues. She could have some undiagnosed sleep apnea. 2D echocardiogram will evaluate for whether she has any right-sided heart issues. (5) Tobacco abuse Is this a current diagnosis for this admission?: Yes Plan: Certainly it would be in her best interest to quit smoking. (6) Cholecystitis Is this a current diagnosis for this admission?: Yes Plan: Status post laparoscopic cholecystectomy. She tolerated the procedure well. Liver function test have been trending downwards. We will check a liver panel in the morning. - Time Time Spent with patient: 35 or more minutes - Inpatient Certification Medical Necessity: Need for IV Antibiotics, Other - Inpatient hospitalization remains necessary. This lady has acute hypoxic respiratory failure and was not on oxygen prior to this hospitalization. She has evidence of early pneumonia as well as significant volume overload. She has no history of congestive heart failure. She needs a 2D echocardiogram. Timing of disposition will be determined by her clinical course.
--- NOTE | 2017-07-24 09:34 | RADIOLOGY REPORT (SQ) ---
EXAM DESCRIPTION: ENDO CATH/BILIARY DUCT COMPLETED DATE/TIME: 07/23/2017 7:26 pm REASON FOR STUDY: ERCP W/ SPHINCTOTOMY R06.00 DYSPNEA, UNSPECIFIED COMPARISON: Abdominal ultrasound 07/22/2017 CT abdomen pelvis 07/22/2017 CT chest 07/23/2017 FLUOROSCOPY TIME: 1.5 minutes 10 digital radiographic images saved to PACS. TECHNIQUE: Intra-operative images acquired during surgical procedure to evaluate progress. NUMBER OF IMAGES: 10 digital radiographic images saved to pacs LIMITATIONS: None. FINDINGS: Intra procedural imaging and fluoro during the ERCP performed by Dr. Momin. Initial images showed contrast injected into the common bile duct with reflux into the common hepatic duct, right and left intrahepatic ducts. Short segment of reflux into the distal cystic duct. Duct s are nondilated Filling defects are seen in the distal common bile duct, air bubbles versus retained distal common du ct tiny stones Common hepatic and common bile duct were swept with a balloon tipped catheter. Please see the operative report for further details IMPRESSION: Intra procedural imaging and fluoro COMMENT: Quality ID [id number]: Final reports for procedures using fluoroscopy that document radiation exp osure indices, or exposure time and number of fluorographic images (if radiation exposure indices are not available) Please consult full operative report of the attending physician for description of the procedure. TECHNICAL DOCUMENTATION: JOB ID: [id number] [employer]- All Rights Reserved Reading location - IP/workstation name: [email or web address]
--- NOTE | 2017-07-24 10:27 | PDOC PROGRESS REPORT ---
Subjective Progress Note for:: 07/24/17 Subjective:: Has shortness of breath last night and was noted with fluid overload and responded well with Lasix. Patient noted with elevated LFTs preoperatively and postoperatively and therefore consultation with GI made for ERCP which she underwent last night. She tolerated the procedure well. She underwent a sphincterotomy. She denies any abdominal pain. Reason For Visit: ACUTE ABDOMINAL PAIN Physical Exam Vital Signs: Temp Pulse Resp BP Pulse Ox 97.9 F 87 18 127/64 H 94 07/24/17 09:13 07/24/17 09:13 07/24/17 09:13 07/24/17 09:13 07/24/17 07:25 Intake & Output 07/23/17 07/24/17 07/25/17 06:59 06:59 06:59 Intake Total 2950 3010 Output Total 570 Balance 2380 3010 Weight 99 kg 104.3 kg General appearance: PRESENT: no acute distress, cooperative Respiratory exam: PRESENT: clear to auscultation emiliana Cardiovascular exam: PRESENT: RRR GI/Abdominal exam: PRESENT: other - Soft, nondistended, nontender to palpation. Wound at the periumbilical region has some slight discoloration but no drainage. Will keep an eye on it. Extremities exam: PRESENT: other - No swelling and no tenderness Results Laboratory Results: 07/24/17 06:37 07/23/17 07/24/17 10:25 06:37 WBC 8.7 RBC 3.40 L Hgb 10.7 L Hct 31.2 L MCV 92 MCH 31.5 MCHC 34.4 RDW 12.6 Plt Count 137 L Sodium 138.2 Potassium 3.7 Chloride 102 Carbon Dioxide 28 Anion Gap 8 BUN 19 Creatinine 0.69 Est GFR ( Amer) > 60 Est GFR (Non-Af Amer) > 60 Glucose 106 Calcium 8.4 Total Bilirubin 2.3 H AST 201 H ALT 288 H Alkaline Phosphatase 124 Total Protein 5.6 L Albumin 3.0 L 07/23/17 10:25 NT-Pro-B Natriuret Pep 1940 H Impressions: Abdomen/Pelvis CT 07/22/17 00:00 IMPRESSION: TRACE PERICHOLECYSTIC FLUID IDENTIFIED. CORRELATE WITH RIGHT UPPER QUADRANT PAIN AND IF THERE IS CLINICAL CONCERN FOR ACUTE CHOLECYSTITIS RECOMMEND ULTRASOUND. NO ADDITIONAL ACUTE INFLAMMATORY CHANGE IDENTIFIED WITHIN THE ABDOMEN OR PELVIS. CHRONIC CHANGES ABOVE. Abdomen Ultrasound 07/22/17 04:25 IMPRESSION: 1. No gallstones. 2. Hepatic steatosis. Catheter Placement 07/23/17 00:00 IMPRESSION: Intra procedural imaging and fluoro Chest CT 07/23/17 00:00 IMPRESSION: Bilateral lower lobe pneumonia. Chest X-Ray 07/24/17 00:00 IMPRESSION: Increasing in pulmonary vascular congestion, interstitial edema and fluid in the fissures from fluid overload or congestive failure Assessment & Plan - Diagnosis (1) Cholecystitis Is this a current diagnosis for this admission?: Yes Plan: Status post laparoscopic cholecystectomy along with laparoscopic appendectomy. Patient was noted with some dyspnea on exertion and therefore hospitalist consultation was obtained yesterday. Evaluation was noteworthy for possible pneumonia. Patient was also noted with elevated liver function studies and therefore GI consultation was obtained. Patient with evidence of common bile duct sludge at least. Now status post successful ERCP with sphincterotomy. Will check her LFTs this morning to see if she has made some progress. If LFTs are improved we will advance her diet. Patient had evidence of fluid overload last night and has responded well with diuresis. Greatly appreciate hospitalist input.
[2017-07-24 10:35] LABS: ALANINE AMINOTRANSFERASE 178 U/L (9-52); ALBUMIN 3.4 g/dL (3.5-5.0); ALKALINE PHOSPHATASE 133 U/L (38-126); ANION GAP 11 (5-19); ASPARTATE AMINO TRANSFERASE 84 U/L (14-36); BILIRUBIN,TOTAL 1.5 mg/dL (0.2-1.3); BLOOD UREA NITROGEN 12 mg/dL (7-20); CALCIUM 8.4 mg/dL (8.4-10.2); CARBON DIOXIDE 30 mmol/L (22-30); CHLORIDE 100 mmol/L (98-107); GLUCOSE 138 mg/dL (75-110); TOTAL PROTEIN 6.6 g/dL (6.3-8.2)
[2017-07-24 10:36] LABS: POTASSIUM 3.1 mmol/L (3.6-5.0)
[2017-07-24] MEDS ORDERED: POTASSIUM CHLORIDE 20 MEQ/15 ML UDCUP PO ONE (10:42)
[2017-07-24] MEDS ORDERED: DEXTROSE 5%-1/2 NORMAL SALINE 1,000 ML with POTASSIUM CHLORIDE 40 MEQ IV PRN ×2 (10:45)
[2017-07-24] MEDS: FLUTICASONE NASAL SPRAY 50 MCG/SPRY 120 SPRAY/16 GM NASL SCH (10:46)
[2017-07-24] MEDS: POTASSI CL 40 MEQ/D5-1/2NS 1L 1000 ML IV PRN (12:51)
[2017-07-24] MEDS: POTASSIUM CHLORIDE 10 MEQ TABLET.SA PO SCH (21:23)
[2017-07-25] MEDS: SODIUM CHLORIDE NASAL SPRAY 44 ML NASL SCH ×5 (01:49→21:24)
[2017-07-25] MEDS: PIPERACILLIN SODIUM/TAZOBACTAM 3.375 GM in NORMAL SALINE 100 ML IV SCH ×4 (03:21→20:28)
[2017-07-25] MEDS ORDERED: POTASSIUM CHLORIDE 10 MEQ TABLET.SA PO ONE (04:08)
[2017-07-25 04:46] LABS: ABSOLUTE BASOPHILS # (AUTO) 0.1 10^3/uL (0.0-0.2); ABSOLUTE EOSINOPHILS # (AUTO) 0.1 10^3/uL (0.0-0.6); ABSOLUTE MONOCYTES (AUTO) 0.5 10^3/uL (0.1-1.4); ABSOLUTE NEUT (AUTO) 6.6 10^3/uL (1.7-8.2); BASOPHILS % (AUTO) 0.7 % (0-2); EOSINOPHILS % (AUTO) 0.7 % (0-6); HEMATOCRIT 31.8 % (36.0-47.0); LYMPHOCYTES % (AUTO) 12.3 % (13-45); MEAN CORPUSCULAR HEMOGLOBIN 31.1 pg (27.0-33.4); MEAN CORPUSCULAR HGB CONC 34.5 g/dL (32.0-36.0); MEAN CORPUSCULAR VOLUME 90 fl (80-97); MONOCYTES % (AUTO) 6.2 % (3-13); PLATELET COUNT 163 10^3/uL (150-450); RED BLOOD COUNT 3.53 10^6/uL (3.72-5.28); RED CELL DISTRIBUTION WIDTH 12.4 % (11.5-14.0); SEGMENTED NEUTROPHILS % (AUTO) 80.1 % (42-78); TOTAL CELLS COUNTED % (AUTO) 100 %; WHITE BLOOD COUNT 8.2 10^3/uL (4.0-10.5)
[2017-07-25 04:59] LABS: ANION GAP 11 (5-19); BLOOD UREA NITROGEN 9 mg/dL (7-20); CALCIUM 8.2 mg/dL (8.4-10.2); CARBON DIOXIDE 30 mmol/L (22-30); CHLORIDE 98 mmol/L (98-107); GLUCOSE 106 mg/dL (75-110); POTASSIUM 3.8 mmol/L (3.6-5.0); SODIUM 138.7 mmol/L (137-145)
[2017-07-25 05:14] LABS: CREATINE KINASE MB < 0.22 ng/mL (<4.55); TROPONIN I < 0.012 ng/mL
[2017-07-25] MEDS: OXYMETAZOLINE HCL 0.05% NASAL SPRAY 15 ML BOTTLE NASL SCH ×2 (05:53→17:57)
[2017-07-25 06:26] LABS: ALANINE AMINOTRANSFERASE 130 U/L (9-52); ALBUMIN 2.8 g/dL (3.5-5.0); ALKALINE PHOSPHATASE 114 U/L (38-126); ASPARTATE AMINO TRANSFERASE 41 U/L (14-36); BILIRUBIN,DIRECT 0.8 mg/dL (0.0-0.4); BILIRUBIN,TOTAL 1.2 mg/dL (0.2-1.3); TOTAL PROTEIN 5.7 g/dL (6.3-8.2)
[2017-07-25] MEDS ORDERED: FUROSEMIDE INJ/PF 20 MG/2 ML SDV IV ONE (07:26)
[2017-07-25] MEDS: IPRATROPIUM/ALBUTEROL 0.5-2.5 MG/3 ML AMPUL NEB SCH ×3 (07:55→19:41)
[2017-07-25] MEDS: FLUTICASONE NASAL SPRAY 50 MCG/SPRY 120 SPRAY/16 GM NASL SCH (08:28)
--- NOTE | 2017-07-25 10:09 | PDOC PROGRESS REPORT ---
Subjective Progress Note for:: 07/25/17 Subjective:: The patient is an extremely pleasant 67-year-old female who had a cholecystectomy performed on July 22. She tolerated the procedure well however sound physicians were consulted due to increased shortness of breath. Ultimately the patient was found to be acutely volume overloaded and she has been diuresing quite well with IV Lasix. Today when I saw the patient she is resting comfortably in the bed. She is now been weaned off of her oxygen. She states that left last night she developed some chest discomfort in the left chest that radiated into her shoulder. She states she still gets short of breath when she gets up and ambulates. She denies fever chills. She has not noted any heart palpitations. No nausea, vomiting or diarrhea. Her abdomen is a little sore from her surgery but feels like it is getting better every day. She has not yet had a bowel movement this morning. She is voiding frequently due to the IV diuresis Reason For Visit: ACUTE CHOLECYSTITIS,FLUID OVERLOAD Physical Exam Vital Signs: Temp Pulse Resp BP Pulse Ox 98.0 F 91 16 135/67 H 93 07/25/17 07:49 07/25/17 07:49 07/25/17 07:49 07/25/17 07:49 07/25/17 07:49 Intake & Output 07/24/17 07/25/17 07/26/17 06:59 06:59 06:59 Output Total 2450 Balance -2450 Weight 98 kg Results Laboratory Results: 07/25/17 04:30 07/25/17 04:30 07/25/17 07/25/17 07/25/17 04:30 04:30 04:30 WBC 8.2 RBC 3.53 L Hgb 11.0 L Hct 31.8 L MCV 90 MCH 31.1 MCHC 34.5 RDW 12.4 Plt Count 163 Seg Neutrophils % 80.1 H Lymphocytes % 12.3 L Monocytes % 6.2 Eosinophils % 0.7 Basophils % 0.7 Absolute Neutrophils 6.6 Absolute Lymphocytes 1.0 Absolute Monocytes 0.5 Absolute Eosinophils 0.1 Absolute Basophils 0.1 Sodium 138.7 Potassium 3.8 Chloride 98 Carbon Dioxide 30 Anion Gap 11 BUN 9 Creatinine 0.46 L Est GFR ( Amer) > 60 Est GFR (Non-Af Amer) > 60 Glucose 106 Calcium 8.2 L Magnesium 2.0 Total Bilirubin 1.2 AST 41 H ALT 130 H Alkaline Phosphatase 114 Total Protein 5.7 L Albumin 2.8 L 07/25/17 07/25/17 07/25/17 04:30 04:30 04:30 Creatine Kinase 35 CK-MB (CK-2) < 0.22 Troponin I < 0.012 NT-Pro-B Natriuret Pep 3090 H Impressions: Abdomen/Pelvis CT 07/22/17 00:00 IMPRESSION: TRACE PERICHOLECYSTIC FLUID IDENTIFIED. CORRELATE WITH RIGHT UPPER QUADRANT PAIN AND IF THERE IS CLINICAL CONCERN FOR ACUTE CHOLECYSTITIS RECOMMEND ULTRASOUND. NO ADDITIONAL ACUTE INFLAMMATORY CHANGE IDENTIFIED WITHIN THE ABDOMEN OR PELVIS. CHRONIC CHANGES ABOVE. Abdomen Ultrasound 07/22/17 04:25 IMPRESSION: 1. No gallstones. 2. Hepatic steatosis. Catheter Placement 07/23/17 00:00 IMPRESSION: Intra procedural imaging and fluoro Chest CT 07/23/17 00:00 IMPRESSION: Bilateral lower lobe pneumonia. Chest X-Ray 07/24/17 00:00 IMPRESSION: Increasing in pulmonary vascular congestion, interstitial edema and fluid in the fissures from fluid overload or congestive failure Assessment & Plan - Diagnosis (1) Acute respiratory failure with hypoxia Is this a current diagnosis for this admission?: Yes Plan: Multifactorial secondary to congestive heart failure exacerbation as well as underlying pneumonia. We will continue with IV diuresis as her BNP is still quite elevated. 2D echocardiogram is pending. Resolved. At this point she is no longer requiring oxygen. (2) Pneumonia Is this a current diagnosis for this admission?: Yes Plan: CT scan revealed evidence of bilateral lower lobe infiltrates. She had been started on IV Unasyn. I am going to transition her to IV Zosyn today which will provide further gram-negative coverage. She was recently intubated and I suspect this is a gram-negative pneumonia. She received 1 day of IV Unasyn. This is day #2 of IV Zosyn. She clearly is improving. (3) Acute exacerbation of congestive heart failure Is this a current diagnosis for this admission?: Yes Plan: At this point she has no history of congestive heart failure. I suspect this is a diastolic congestive heart failure event. I have ordered a 2D echocardiogram for further evaluation. We will continue Lasix 40 mg IV every 12 hours today and recheck a chemistry panel as well as a BNP in the morning. (4) Chest pain Is this a current diagnosis for this admission?: Yes Plan: I suspect this is due to her underlying pneumonia and congestive heart failure exacerbation. However I will trend her serial troponins today. We will await final results of her echocardiogram. I would hold off on stress testing at this point. (5) Obesity (BMI 35.0-39.9 without comorbidity) Is this a current diagnosis for this admission?: Yes Plan: The patient has a BMI of 39.5. Certainly she would benefit from weight loss and this is not helping her respiratory issues. She could have some undiagnosed sleep apnea. 2D echocardiogram will evaluate for whether she has any right-sided heart issues. (6) Tobacco abuse Is this a current diagnosis for this admission?: Yes Plan: Certainly it would be in her best interest to quit smoking. (7) Cholecystitis Is this a current diagnosis for this admission?: Yes Plan: Status post laparoscopic cholecystectomy. She tolerated the procedure well. Liver function test have been trending downwards. She will have a liver panel in the morning. - Time Time Spent with patient: 25-34 minutes - Inpatient Certification Medical Necessity: Need for IV Antibiotics, Other - Inpatient hospitalization remains necessary. The patient has an early pneumonia as well as congestive heart failure requiring parenteral antibiotics and Lasix. She also had chest pain overnight and we need to keep her in the hospital to trend her serial troponins. Sound physicians will continue to follow with you.
[2017-07-25] MEDS: POTASSIUM CHLORIDE 10 MEQ TABLET.SA PO SCH ×2 (11:09→21:27)
[2017-07-25 12:42] LABS: CREATINE KINASE MB < 0.22 ng/mL (<4.55); TROPONIN I < 0.012 ng/mL
[2017-07-25] MEDS: POTASSI CL 40 MEQ/D5-1/2NS 1L 1000 ML IV PRN (14:34)
--- NOTE | 2017-07-25 14:47 | PDOC PROGRESS REPORT ---
Subjective Reason For Visit: ACUTE CHOLECYSTITIS,FLUID OVERLOAD Physical Exam Vital Signs: Temp Pulse Resp BP Pulse Ox 98.1 F 83 16 136/71 H 93 07/25/17 11:43 07/25/17 13:45 07/25/17 13:45 07/25/17 11:43 07/25/17 11:43 Intake & Output 07/24/17 07/25/17 07/26/17 06:59 06:59 06:59 Output Total 2450 Balance -2450 Weight 98 kg Results Laboratory Results: 07/25/17 04:30 07/25/17 04:30 07/25/17 07/25/17 07/25/17 04:30 04:30 04:30 WBC 8.2 RBC 3.53 L Hgb 11.0 L Hct 31.8 L MCV 90 MCH 31.1 MCHC 34.5 RDW 12.4 Plt Count 163 Seg Neutrophils % 80.1 H Lymphocytes % 12.3 L Monocytes % 6.2 Eosinophils % 0.7 Basophils % 0.7 Absolute Neutrophils 6.6 Absolute Lymphocytes 1.0 Absolute Monocytes 0.5 Absolute Eosinophils 0.1 Absolute Basophils 0.1 Sodium 138.7 Potassium 3.8 Chloride 98 Carbon Dioxide 30 Anion Gap 11 BUN 9 Creatinine 0.46 L Est GFR ( Amer) > 60 Est GFR (Non-Af Amer) > 60 Glucose 106 Calcium 8.2 L Magnesium 2.0 Total Bilirubin 1.2 AST 41 H ALT 130 H Alkaline Phosphatase 114 Total Protein 5.7 L Albumin 2.8 L 07/25/17 07/25/17 07/25/17 04:30 04:30 04:30 Creatine Kinase 35 CK-MB (CK-2) < 0.22 Troponin I < 0.012 NT-Pro-B Natriuret Pep 3090 H 07/25/17 07/25/17 11:43 11:43 Creatine Kinase 38 CK-MB (CK-2) < 0.22 Troponin I < 0.012 NT-Pro-B Natriuret Pep Impressions: Abdomen/Pelvis CT 07/22/17 00:00 IMPRESSION: TRACE PERICHOLECYSTIC FLUID IDENTIFIED. CORRELATE WITH RIGHT UPPER QUADRANT PAIN AND IF THERE IS CLINICAL CONCERN FOR ACUTE CHOLECYSTITIS RECOMMEND ULTRASOUND. NO ADDITIONAL ACUTE INFLAMMATORY CHANGE IDENTIFIED WITHIN THE ABDOMEN OR PELVIS. CHRONIC CHANGES ABOVE. Abdomen Ultrasound 07/22/17 04:25 IMPRESSION: 1. No gallstones. 2. Hepatic steatosis. Catheter Placement 07/23/17 00:00 IMPRESSION: Intra procedural imaging and fluoro Chest CT 07/23/17 00:00 IMPRESSION: Bilateral lower lobe pneumonia. Chest X-Ray 07/24/17 00:00 IMPRESSION: Increasing in pulmonary vascular congestion, interstitial edema and fluid in the fissures from fluid overload or congestive failure Assessment & Plan - Plan Summary Plan Summary: This is a 67-year-old female status post laparoscopic cholecystectomy. She also underwent ERCP for obstructive biliary sludge. Patient's bilirubin is falling nicely to the normal range. The patient is feeling better. She reports that she is breathing better. She is hungry today. Hospitalist service is following for CHF and pneumonia. Continue current therapy. Regular diet. Home when okay with medical service.
[2017-07-25 16:58] LABS: CREATINE KINASE MB < 0.22 ng/mL (<4.55); TROPONIN I < 0.012 ng/mL
[2017-07-25] MEDS ORDERED: FUROSEMIDE INJ/PF 40 MG/4 ML SDV IV SCH (18:00)
--- NOTE | 2017-07-25 18:58 | XCELERA REPORT ---
[address] [address] Transthoracic Echocardiogram Report Name: LESLIE ALFARO Age: 67 yrs Gender: Female : 1950 Patient Status: Inpatient Patient Location: [address] [place] [address] Study Date: 07/25/2017 10:16 AM Height: 64 in Weight: 218 lb BSA: 2.0 m2 Procedure: A complete two-dimensional transthoracic echocardiogram was performed (2D, M-mode, spectral and color flow Doppler). The study was technically difficult with many images being suboptimal in quality. Reason For Study: elevated BNP Ordering Physician: VINCENT SMALL Performed By: Kayla Sotelo Interpretation Summary The left ventricular ejection fraction is preserved. Doppler measurements suggest pseudonormalized left ventricular relaxation, which is associated with grade II/IV or mild to moderate diastolic dysfunction There is mild concentric left ventricular hypertrophy. The left ventricle is grossly normal size. Regional wall motion abnormalities cannot be excluded due to limited visualization. The right ventricle is not well visualized secondary to technical limitations Right atrium not well visualized secondary to technical limitations The left atrium is borderline dilated. There is a trace amount of mitral regurgitation There is no mitral valve stenosis. No aortic regurgitation is present. There is no aortic valve stenosis There is no tricuspid stenosis. No tricuspid regurgitation. The aortic root is not well visualized. The inferior vena cava appeared normal and decreased > 50% with respiration (RAP 5-10 mmHg) There is no pericardial effusion. MMode/2D Measurements & Calculations RVDd: 3.0 cm LVIDd: 4.3 cm FS: 30.3 % Ao root diam: 2.3 cm IVSd: 1.1 cm LVIDs: 3.0 cm EDV(Teich): 82.2 ml LVPWd: 1.1 cm ESV(Teich): 34.5 ml Ao root area: 4.1 cm2 EF(Teich): 58.0 % LA dimension: 3.7 cm Doppler Measurements & Calculations MV E max cheryl: MV P1/2t max cheryl: Ao V2 max: LV V1 max P.3 cm/sec 90.3 cm/sec 120.5 cm/sec 2.2 mmHg MV A max cheryl: MV P1/2t: 58.4 msec Ao max PG: LV V1 max: 80.5 cm/sec 5.8 mmHg 74.5 cm/sec MV E/A: 1.1 MVA(P1/2t): 3.8 cm2 MV dec slope: 453.1 cm/sec2 PA V2 max: 75.3 cm/sec PA max P.3 mmHg Left Ventricle The left ventricle is grossly normal size. There is mild concentric left ventricular hypertrophy. The left ventricular ejection fraction is preserved. Doppler measurements suggest pseudonormalized left ventricular relaxation, which is associated with grade II/IV or mild to moderate diastolic dysfunction. Regional wall motion abnormalities cannot be excluded due to limited visualization. Right Ventricle The right ventricle is not well visualized secondary to technical limitations. Atria Right atrium not well visualized secondary to technical limitations. The left atrium is borderline dilated. Mitral Valve The mitral valve is not well visualized. There is no mitral valve stenosis. There is a trace amount of mitral regurgitation. Aortic Valve The aortic valve is not well visualized secondary to technical limitations. There is no aortic valve stenosis. No aortic regurgitation is present. Tricuspid Valve The tricuspid valve is not well visualized secondary to technical limitations. There is no tricuspid stenosis. No tricuspid regurgitation. Pulmonic Valve The pulmonic valve is not well visualized. Great Vessels The aortic root is not well visualized. The inferior vena cava appeared normal and decreased > 50% with respiration (RAP 5-10 mmHg). Effusions There is no pericardial effusion. : VINCENT SMALL > Bin Mcqueen
[2017-07-25 22:51] LABS: CREATINE KINASE MB < 0.22 ng/mL (<4.55); TROPONIN I < 0.012 ng/mL
[2017-07-26] MEDS: PIPERACILLIN SODIUM/TAZOBACTAM 3.375 GM in NORMAL SALINE 100 ML IV SCH ×2 (02:25→09:47)
[2017-07-26] MEDS: OXYMETAZOLINE HCL 0.05% NASAL SPRAY 15 ML BOTTLE NASL SCH (06:00)
[2017-07-26 06:40] LABS: ABSOLUTE BASOPHILS # (AUTO) 0.1 10^3/uL (0.0-0.2); ABSOLUTE EOSINOPHILS # (AUTO) 0.1 10^3/uL (0.0-0.6); ABSOLUTE LYMPHOCYTES (AUTO) 1.5 10^3/uL (0.5-4.7); ABSOLUTE MONOCYTES (AUTO) 0.6 10^3/uL (0.1-1.4); ABSOLUTE NEUT (AUTO) 4.2 10^3/uL (1.7-8.2); BASOPHILS % (AUTO) 0.8 % (0-2); EOSINOPHILS % (AUTO) 2.2 % (0-6); HEMATOCRIT 34.7 % (36.0-47.0); HEMOGLOBIN 11.9 g/dL (12.0-15.5); LYMPHOCYTES % (AUTO) 23.3 % (13-45); MEAN CORPUSCULAR HEMOGLOBIN 31.1 pg (27.0-33.4); MEAN CORPUSCULAR HGB CONC 34.1 g/dL (32.0-36.0); MEAN CORPUSCULAR VOLUME 91 fl (80-97); MONOCYTES % (AUTO) 8.8 % (3-13); PLATELET COUNT 207 10^3/uL (150-450); RED BLOOD COUNT 3.81 10^6/uL (3.72-5.28); RED CELL DISTRIBUTION WIDTH 12.7 % (11.5-14.0); SEGMENTED NEUTROPHILS % (AUTO) 64.9 % (42-78); TOTAL CELLS COUNTED % (AUTO) 100 %; WHITE BLOOD COUNT 6.5 10^3/uL (4.0-10.5)
[2017-07-26 06:57] LABS: ALANINE AMINOTRANSFERASE 105 U/L (9-52); ALBUMIN 3.1 g/dL (3.5-5.0); ALKALINE PHOSPHATASE 120 U/L (38-126); ANION GAP 9 (5-19); ASPARTATE AMINO TRANSFERASE 30 U/L (14-36); BILIRUBIN,DIRECT 0.6 mg/dL (0.0-0.4); BLOOD UREA NITROGEN 9 mg/dL (7-20); CALCIUM 8.7 mg/dL (8.4-10.2); CARBON DIOXIDE 31 mmol/L (22-30); CHLORIDE 99 mmol/L (98-107); GLUCOSE 101 mg/dL (75-110); POTASSIUM 4.4 mmol/L (3.6-5.0); SODIUM 139.2 mmol/L (137-145); TOTAL PROTEIN 5.8 g/dL (6.3-8.2)
[2017-07-26] MEDS: SODIUM CHLORIDE NASAL SPRAY 44 ML NASL SCH ×2 (07:01→11:23)
[2017-07-26] MEDS: IPRATROPIUM/ALBUTEROL 0.5-2.5 MG/3 ML AMPUL NEB SCH (07:47)
--- NOTE | 2017-07-26 09:34 | PDOC PROGRESS REPORT ---
Subjective Progress Note for:: 07/26/17 Subjective:: Feels well. No shortness of breath. Tolerating a diet well. No abdominal pain. Reason For Visit: ACUTE CHOLECYSTITIS,FLUID OVERLOAD Physical Exam Vital Signs: Temp Pulse Resp BP Pulse Ox 98.2 F 94 16 142/73 H 92 07/26/17 07:31 07/26/17 07:31 07/26/17 07:31 07/26/17 07:31 07/26/17 07:31 Intake & Output 07/25/17 07/26/17 07/27/17 06:59 06:59 06:59 Intake Total 1780 Output Total 2450 2400 Balance -2450 -620 Weight 98 kg 93.7 kg General appearance: PRESENT: no acute distress, cooperative Respiratory exam: PRESENT: clear to auscultation emiliana Cardiovascular exam: PRESENT: RRR GI/Abdominal exam: PRESENT: other - Soft, nondistended, nontender to palpation. Wounds clean dry and intact. Extremities exam: PRESENT: other - No swelling and no tenderness Results Laboratory Results: 07/26/17 05:55 07/26/17 05:55 07/26/17 07/26/17 05:55 05:55 WBC 6.5 RBC 3.81 Hgb 11.9 L Hct 34.7 L MCV 91 MCH 31.1 MCHC 34.1 RDW 12.7 Plt Count 207 Seg Neutrophils % 64.9 Lymphocytes % 23.3 Monocytes % 8.8 Eosinophils % 2.2 Basophils % 0.8 Absolute Neutrophils 4.2 Absolute Lymphocytes 1.5 Absolute Monocytes 0.6 Absolute Eosinophils 0.1 Absolute Basophils 0.1 Sodium 139.2 Potassium 4.4 Chloride 99 Carbon Dioxide 31 H Anion Gap 9 BUN 9 Creatinine 0.47 L Est GFR ( Amer) > 60 Est GFR (Non-Af Amer) > 60 Glucose 101 Calcium 8.7 Magnesium 2.0 Total Bilirubin 1.0 AST 30 ALT 105 H Alkaline Phosphatase 120 Total Protein 5.8 L Albumin 3.1 L 07/25/17 07/25/17 07/25/17 04:30 04:30 04:30 Creatine Kinase 35 CK-MB (CK-2) < 0.22 Troponin I < 0.012 NT-Pro-B Natriuret Pep 3090 H 07/25/17 07/25/17 07/25/17 11:43 11:43 16:12 Creatine Kinase 38 32 CK-MB (CK-2) < 0.22 Troponin I < 0.012 NT-Pro-B Natriuret Pep 07/25/17 07/25/17 07/25/17 16:12 22:20 22:20 Creatine Kinase 29 L CK-MB (CK-2) < 0.22 < 0.22 Troponin I < 0.012 < 0.012 NT-Pro-B Natriuret Pep Impressions: Abdomen/Pelvis CT 07/22/17 00:00 IMPRESSION: TRACE PERICHOLECYSTIC FLUID IDENTIFIED. CORRELATE WITH RIGHT UPPER QUADRANT PAIN AND IF THERE IS CLINICAL CONCERN FOR ACUTE CHOLECYSTITIS RECOMMEND ULTRASOUND. NO ADDITIONAL ACUTE INFLAMMATORY CHANGE IDENTIFIED WITHIN THE ABDOMEN OR PELVIS. CHRONIC CHANGES ABOVE. Abdomen Ultrasound 07/22/17 04:25 IMPRESSION: 1. No gallstones. 2. Hepatic steatosis. Catheter Placement 07/23/17 00:00 IMPRESSION: Intra procedural imaging and fluoro Chest CT 07/23/17 00:00 IMPRESSION: Bilateral lower lobe pneumonia. Chest X-Ray 07/24/17 00:00 IMPRESSION: Increasing in pulmonary vascular congestion, interstitial edema and fluid in the fissures from fluid overload or congestive failure Assessment & Plan - Diagnosis (1) Cholecystitis Is this a current diagnosis for this admission?: Yes Plan: With common bile duct stone/sludge. Status post laparoscopic cholecystectomy and ERCP. Patient looks good. Respiratory status has markedly improved after diuresis. Patient no longer requiring oxygen. Will DC patient home when okay with the hospitalist.
[2017-07-26] MEDS: POTASSIUM CHLORIDE 10 MEQ TABLET.SA PO SCH (09:48)
[2017-07-26] MEDS: FLUTICASONE NASAL SPRAY 50 MCG/SPRY 120 SPRAY/16 GM NASL SCH (09:52)
[2017-07-26] MEDS ORDERED: FUROSEMIDE INJ/PF 40 MG/4 ML SDV IV SCH (10:00)
[2017-07-26 12:07] VITALS: BP 109/65
--- NOTE | 2017-07-26 12:14 | DISCHARGE SUMMARY E ---
Discharge Summary NAME: LESLIE ALFARO : 1950 AGE: 67Y ADMITTED: 07/22/2017 DISCHARGED: 07/26/2017 DISCHARGE DIAGNOSES: 1. Cholecystitis and cholelithiasis. 2. Choledocholithiasis. 3. Duodenal diverticulum. 4. Pulmonary edema. 5. Atelectasis. PROCEDURES PERFORMED DURING HOSPITALIZATION: 1. Laparoscopic cholecystectomy and laparoscopic appendectomy performed by Dr. Lyle Da Silva on 07/22/2017. 2. ERCP with sphincterotomy performed by Dr. Momin on 07/23/2017. HOSPITAL COURSE: The patient underwent the above noted procedure. Of note, she was noted with an appendiceal abnormality during her gallbladder surgery and she had an incidental appendectomy. Pathology demonstrated benign appendix with no significant inflammation and no carcinoma. She was noted with elevated liver function studies and she subsequently underwent an ERCP with sludge extraction and sphincterotomy. She had good response with her procedure. She was also noted with incidental duodenal diverticulum. Her LFTs had markedly improved by the time of discharge with total bilirubin returning to 1.0, AST of 30, ALT of 105, and alkaline phosphatase 120. During her postoperative course, she was noted with some dyspnea on exertion and some O2 requirement. Workup at that time demonstrated possible pneumonia versus atelectasis. At the end of the hospital stay, hospitalist felt that there was more likely to be atelectasis and not pneumonia. She responded well with diuresis and pulmonary toilet. She did not require any oxygen at the time of discharge with room air saturations being in the low 90s. Her exam looked good with clear breath sounds. She was tolerating a diet well with no abdominal pain. Of note, she had underwent a cardiac workup, including enzymes, which were negative. She did have a cardiac echo, which demonstrated mild concentric left ventricular hypertrophy with preserved ejection fraction. There was grade 2/4 or mild diastolic dysfunction. There was trace mitral regurgitation. Hospitalist felt that she was ready for discharge and that she did not require cardiology followup. However, they did recommend followup with her primary care physician. She is now being discharged to home in good condition. She will follow up with [facility] in a couple of weeks. She is instructed to stay active at home, but avoid strenuous activity. She may shower. She may resume her home diet. She did not require any pain medications. She was on no home medications at home. I have also asked her to follow up with her primary care doctor in the next 1-2 weeks. She is to call us for any problems. DICTATING PHYSICIAN: YENY OWEN M.D. [id number] PHY#: [id number] ID: [id number] JOB#: [id number] ACCT: [id number] cc:YENY OWEN M.D. [facility], >
== END 2017-07-26 12:38 | disposition home or self-care (01) | DRG 417 ==
LOC: ER 02:36 → INTOOBSV 11:39 → EH 11:39 → 2N 15:40 → OBSVTOIN 07-24 11:59
PROVIDERS: ADMIT Surgery; ATTEND Surgery
PROC: 0DTJ4ZZ Resection of Appendix, Percutaneous Endoscopic Approach (ICD-10-PCS; 2017-07-22)
PROC: 0FT44ZZ Resection of Gallbladder, Percutaneous Endoscopic Approach (ICD-10-PCS; principal; 2017-07-22 12:45)
PROC: 0DJ08ZZ Inspection of Upper Intestinal Tract, Via Natural or Artificial Opening Endoscopic (ICD-10-PCS; 2017-07-23)
PROC: 3E0G8GC Introduction of Other Therapeutic Substance into Upper GI, Via Natural or Artificial Opening Endoscopic (ICD-10-PCS; 2017-07-23)
PROC: BF00YZZ Plain Radiography of Bile Ducts using Other Contrast (ICD-10-PCS; 2017-07-23)
PROC: 0F798ZZ Dilation of Common Bile Duct, Via Natural or Artificial Opening Endoscopic (ICD-10-PCS; 2017-07-23 18:00)
DX: K80.00 Calculus of gallbladder with acute cholecystitis without obstruction (principal); I50.31 Acute diastolic (congestive) heart failure; J96.01 Acute respiratory failure with hypoxia; J98.11 Atelectasis; K57.10 Diverticulosis of small intestine without perforation or abscess without bleeding; K38.9 Disease of appendix, unspecified; K76.0 Fatty (change of) liver, not elsewhere classified; F17.210 Nicotine dependence, cigarettes, uncomplicated; E66.01 Morbid (severe) obesity due to excess calories; Z68.39 Body mass index [BMI] 39.0-39.9, adult
CPT/HCPCS: 36415; 43236; 43262; 43264; 71045; 71046; 71260; 74177; 74328; 76705; 790; 80048; 80053; 80076; 81001; 82550; 82553; 83690; 83735; 83880; 84484; 85025; 85027; 88304; 93005; 93010; 93306; 94640; 94667; 96361; 96374; 96375; 99285; G0378; J0131; J0171; J0295; J0330; J0690; J1100; J1170; J1610; J1885; J1940; J2250; J2310; J2405; J2543; J2704; J2765; J3010; J3480; J3490; J7030; J7120; J7620